=== PATIENT | male | born 1995 | race Caucasian/White ===

== ENCOUNTER → 2023-08-12 | Outpatient (CLI) | payer OTHER | END | disposition home or self-care (01) | LOC: RADMN 08:59 | PROVIDERS: ATTEND Chiropractor | DX: S42.002A Fracture of unspecified part of left clavicle, initial encounter for closed fracture (principal); X58.XXXA Exposure to other specified factors, initial encounter; Y93.89 Activity, other specified; Y92.89 Other specified places as the place of occurrence of the external cause; Y99.8 Other external cause status | CPT/HCPCS: 73000-TC ==

== ENCOUNTER 2025-06-11 05:35 | Emergency (ER) | payer MEDICAID, OTHER | END 2025-06-11 05:49 | disposition left against medical advice (07) | LOC: EMS 05:43 | DX: Z00.8 Encounter for other general examination (principal); Z53.21 Procedure and treatment not carried out due to patient leaving prior to being seen by health care provider ==